=== PATIENT | female | born 1995 | race Hispanic/Latino ===

== ENCOUNTER 2019-04-06 10:49 | Inpatient (IN) | payer OTHER ==
[2019-04-06] MEDS ORDERED: ePHEDrine SULFATE 50 MG/1 ML INJ IV PRN ×2 (11:10→15:54)
[2019-04-06] MEDS ORDERED: TERBUTALINE 1 MG/1 ML INJ SUB-Q PRN (11:10)
[2019-04-06] MEDS ORDERED: AMPICILLIN/NS 2 GM/100 ML 2 GM/100 ML BAG IV ONE (11:10)
[2019-04-06] MEDS ORDERED: LIDOCAINE (2%) 20 MG/1 ML VIAL 20 ML MDV INFILTRATI ONE (11:10)
[2019-04-06] MEDS ORDERED: ONDANSETRON 4 MG/2 ML INJ IV PRN (11:10)
--- NOTE | 2019-04-06 11:14 | History and Physical Report ---
History of Present Illness Date of examination: 04/06/19 Date of admission: 04/06/19 10:49 Chief complaint: SROM @ 41 weeks, 0845 today History of present illness: EDC Confirmation: 03/30/2019 Past History : 1 Term Births: 0 Premature Births: 0 Living Children: 0 Para: 0 Mult. Births: 0 Prev : 0 Prev. attempt? 0 Aborta: 0 Elect. Ab: 0 Spont. 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 of genital herpes: no Varicella/Chicken Pox Status: Previous Disease Genetic History Congenital Heart Defect: Mom: no Dad: no Thomas Disease: Mom: no Dad: no Thalassemia Mom: no Dad: no Neural Tube Defect Mom: no Dad: no Down's Syndrome Mom: no Dad: no Brennan-Sachs Mom: no Dad: no Sickle Cell Disease/Trait Mom: no Dad: no Hemophilia Mom: no Dad: no Muscular Dystrophy Mom: no Dad: no Cystic Fibrosis Mom: no Dad: no [place] Chorea Mom: no Dad: no Mental Retardation Mom: no Dad: no Fragile X Mom: no Dad: no Other Genetic/Chromosomal Disorder Mom: no Dad: no Child w/other defect Mom: no Dad: no Enviromental Exposures Xray Exposure: no Medication, drug, or alcohol use since LMP: no Chemical/Other Exposure: no Exposure to Cat Liter: yes Hx of Parvovirus (Fifth Disease): no Occupational Exposure to Children: none Active Medications: None Past History Past Medical History: other (see HPI) Past Surgical History: other (see HPI) 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) Family/Genetic History: other (see HPI) - Obstetrical History Expected Date of Delivery: 03/30/19 Actual Gestation: 41 Week(s) 0 Day(s) : 1 Para: 0 Hx # Term Pregnancies: 0 Number of Pregnancies: 0 Spontaneous Abortions: 0 Induced : 0 Number of Living Children: 0 Medications and Allergies Allergies Allergy/AdvReac Type Severity Reaction Status Date / Time No Known Allergies Allergy Unverified 08/29/14 16:59 Home Medications Medication Instructions Recorded Confirmed Last Taken Type Ibuprofen [Motrin] 600 mg PO Q8H PRN #30 tablet 08/29/14 Unknown Rx oxyCODONE /ACETAMINOPHEN [Percocet 1 tab PO Q6HR PRN #12 tablet 08/29/14 Unknown Rx 5/325] Review of Systems All systems: negative - Vital Signs Vital signs: Vital Signs Pulse BP 115 H 137/94 04/06/19 11:11 04/06/19 11:11 Temp Pulse Resp BP Pulse Ox 115 H 137/94 04/06/19 11:11 04/06/19 11:11 - Physical Exam Breasts: Positive: normal Cardiovascular: Regular rate Lungs: Positive: Clear to auscultation, Normal air movement Abdomen: Positive: normal appearance, soft Genitourinary (Female): Positive: normal external genitalia, normal perenium Vulva: both: normal Vagina: Positive: normal moisture (SROM - light mec fluid noted) Uterus: Positive: normal size, normal contour Anus/Rectum: Positive: normal perianal skin Deep Tendon Reflex Grade: Normal +2 - Obstetrical FHR: auscultation normal, category 1 Uterine Contraction Monitor Mode: External Cervical Dilatation: 1.5 (Vertex, light mec) Cervical Effacement Percentage: 50 station: -1 Uterine Contraction Frequency (min): 2-3 Uterine Contraction Duration: 60 Uterine Contraction Pattern: Regular Uterine Tone Measurement Phase: Contraction Uterine Contraction Intensity: Mild Results All other labs normal. Assessment and Plan 23y/o @ 41+0 weeks, arrived SROM with light mec fluid. EFW 7#12oz on u/s in office 04/04. Pelvis feels adequate for size of baby. GBS +. complicated by maternal smoking and late PNC @ 21 weeks. Admission orders in EMR. - Patient Problems (1) GBS carrier Current Visit: Yes Status: Acute Plan to address problem: Ampicillin q4h until delivery (2) SROM (spontaneous rupture of membranes) Current Visit: Yes Status: Acute (3) 41 weeks gestation of Current Visit: Yes Status: Acute
[2019-04-06] MEDS ORDERED: OXYTOCIN DRIP 30 UNITS/500 ML BAG IV SCH (12:00)
[2019-04-06] MEDS: LACTATED RINGERS 1,000 ML IV SCH ×4 (12:00→22:58)
[2019-04-06 13:15] LABS: Hematocrit 38.9 % (30.3-42.9); Hemoglobin 13.1 gm/dl (10.1-14.3); Mean Corpuscular HGB Conc 34 % (30-34); Mean Corpuscular Volume 92 fl (79-97); Platelet Count 235 K/mm3 (140-440); Red Blood Count 4.21 M/mm3 (3.65-5.03)
[2019-04-06] MEDS ORDERED: fentaNYL 100 MCG/2 ML INJ ONE (13:33)
--- NOTE | 2019-04-06 14:03 | Event Note ---
Date: 04/06/19 pitocin increased from 1mU to 5mU via pump. FHT CAT 1, baseline 120, + Accels. Ctx irregular and mild in palpation. Will continue to monitor and titrate pitocin as needed d/t SROM and + GBS.
--- NOTE | 2019-04-06 14:33 | Event Note ---
Date: 04/06/19 Pt assisted to bathroom, bed linens changes. Pitocin increased from 5mU to 9mU. FHT CAT 1, baseline 120. ctx 2-4min lasting 60 second palpated mild to moderate. resting tone palpated soft. Pt denies additional needs at this time. Will continue to monitor closely.
--- NOTE | 2019-04-06 15:04 | Event Note ---
Date: 04/06/19 New bag of LR dee, IVF open for pre-epidural bolus. Pitocin increased from 9mU to 13mU. FHT [address] variability and + Accels, CAT 1. CTX 2-3minutes apart, lasting approx 60 second. Mild-Moderate intensity and soft resting tone palpated.
[2019-04-06] MEDS ORDERED: AMPICILLIN/NS 1 GM/50 ML 1 GM/50 ML BAG IV SCH (15:11)
[2019-04-06] MEDS ORDERED: fentaNYL 100 MCG/2 ML INJ IV ONE (15:13)
[2019-04-06] MEDS ORDERED: SODIUM CHLORIDE P/F VIAL 10 ML 10 ML ONE (15:40)
[2019-04-06] MEDS ORDERED: DEXMEDETOMIDINE 200 MCG/2 ML VIAL IV ONE (15:40)
[2019-04-06] MEDS ORDERED: NALOXONE 2 MG/2 ML INJ IV PRN (15:54)
--- NOTE | 2019-04-06 15:56 | Anesthesia Consultation ---
Anesthesia Consult and Med Hx Date of service: 04/06/19 - Airway Anesthetic Teeth Evaluation: Good ROM Head & Neck: Adequate Mental/Hyoid Distance: Adequate Mallampati Class: Class II Intubation Access Assessment: Probably Good - Pulmonary Exam CTA: Yes - Cardiac Exam Cardiac Exam: RRR - Pre-Operative Health Status ASA Pre-Surgery Classification: ASA3 Proposed Anesthetic Plan: Epidural - Cardiovascular System Hx Valvular Heart Disease: Yes (unknown, no cp, sob, syncope ) - Other Systems Hx Obesity: Yes
[2019-04-06] MEDS ORDERED: fentaNYL-BUPIV 2 MCG/ML-0.125% 200 MCG/100 ML BAG EPIDURAL SCH (16:00)
--- NOTE | 2019-04-06 16:24 | Progress Note ---
Assessment and Plan patient comfortable s/p epidural. IUPC placed without difficulty, blood noted in tube. IUPC working well. Will continue current management. - Patient Problems (1) GBS carrier Current Visit: Yes Status: Acute Plan to address problem: Ampicillin q4h until delivery (2) SROM (spontaneous rupture of membranes) Current Visit: Yes Status: Acute (3) 41 weeks gestation of Current Visit: Yes Status: Acute Subjective - Subjective Date of service: 04/06/19 Principal diagnosis: IUP @ 41 weeks, SROM Interval history: EDC Confirmation: 03/30/2019 Past History : 1 Term Births: 0 Premature Births: 0 Living Children: 0 Para: 0 Mult. Births: 0 Prev : 0 Prev. attempt? 0 Aborta: 0 Elect. Ab: 0 Spont. 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 of genital herpes: no Varicella/Chicken Pox Status: Previous Disease Genetic History Congenital Heart Defect: Mom: no Dad: no Thomas Disease: Mom: no Dad: no Thalassemia Mom: no Dad: no Neural Tube Defect Mom: no Dad: no Down's Syndrome Mom: no Dad: no Brennan-Sachs Mom: no Dad: no Sickle Cell Disease/Trait Mom: no Dad: no Hemophilia Mom: no Dad: no Muscular Dystrophy Mom: no Dad: no Cystic Fibrosis Mom: no Dad: no [place] Chorea Mom: no Dad: no Mental Retardation Mom: no Dad: no Fragile X Mom: no Dad: no Other Genetic/Chromosomal Disorder Mom: no Dad: no Child w/other defect Mom: no Dad: no Enviromental Exposures Xray Exposure: no Medication, drug, or alcohol use since LMP: no Chemical/Other Exposure: no Exposure to Cat Liter: yes Hx of Parvovirus (Fifth Disease): no Occupational Exposure to Children: none Active Medications: None Patient reports: no new complaints (comfortable with epidural) Objective - Vital Signs Vital Signs: Vital Signs - 12hr 04/06/19 04/06/19 04/06/19 11:11 11:14 15:44 Pulse Rate 115 H 110 H 90 Blood Pressure 137/94 125/75 O2 Sat by Pulse 100 Oximetry 04/06/19 04/06/19 04/06/19 15:46 15:49 15:50 Pulse Rate 77 97 H 94 H Blood Pressure 134/73 133/71 126/66 O2 Sat by Pulse 98 Oximetry 04/06/19 04/06/19 04/06/19 15:54 15:55 15:59 Pulse Rate 92 H 93 H 89 Blood Pressure 130/63 O2 Sat by Pulse 98 97 Oximetry 04/06/19 04/06/19 04/06/19 16:03 16:04 16:09 Pulse Rate 102 H 95 H 100 H Blood Pressure 118/58 107/53 O2 Sat by Pulse 98 98 Oximetry 04/06/19 04/06/19 04/06/19 16:14 16:16 16:17 Pulse Rate 110 H 110 H 89 Blood Pressure 100/54 108/68 109/63 O2 Sat by Pulse 98 Oximetry 04/06/19 16:19 Pulse Rate 89 Blood Pressure O2 Sat by Pulse 99 Oximetry - Exam Breasts: normal Cardiovascular: Regular rate Lungs: Clear to auscultation, Normal air movement Abdomen: Present: normal appearance, soft Vulva: both: normal Uterus: Present: normal, fundal height above umbilicus FHR: category 2 Uterine Contraction Monitor Mode: Internal Cervical Dilatation: 3.5 Cervical Effacement Percentage: 70 station: -1 Uterine Contraction Frequency (min): 2-3 Uterine Contraction Duration: 60 Uterine Contraction Pattern: Regular Uterine Tone Measurement Phase: Contraction Uterine Contraction Intensity: Moderate Extremities: normal - Labs Labs: Abnormal Labs 04/06/19 12:41 WBC 11.2 H Laboratory Results - last 24 hr 04/06/19 04/06/19 04/06/19 12:41 12:41 12:41 WBC 11.2 H RBC 4.21 Hgb 13.1 Hct 38.9 MCV 92 MCH 31 MCHC 34 RDW 14.0 Plt Count 235 Syphilis IgG Antibody Non-reactive Blood Type A POSITIVE Antibody Screen Negative
--- NOTE | 2019-04-06 18:46 | Progress Note ---
Assessment and Plan no cervical change noted since last SVE after epidural. Pit turned off when FHT had decels after epidural d/t hypertension. pitocin restarted will resume titrating for adequate labor as status allow. - Patient Problems (1) GBS carrier Current Visit: Yes Status: Acute Plan to address problem: Ampicillin q4h until delivery (2) SROM (spontaneous rupture of membranes) Current Visit: Yes Status: Acute (3) 41 weeks gestation of Current Visit: Yes Status: Acute Subjective - Subjective Date of service: 04/06/19 Principal diagnosis: IUP @ 41 weeks, SROM Interval history: EDC Confirmation: 03/30/2019 Past History : 1 Term Births: 0 Premature Births: 0 Living Children: 0 Para: 0 Mult. Births: 0 Prev : 0 Prev. attempt? 0 Aborta: 0 Elect. Ab: 0 Spont. 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 of genital herpes: no Varicella/Chicken Pox Status: Previous Disease Genetic History Congenital Heart Defect: Mom: no Dad: no Thomas Disease: Mom: no Dad: no Thalassemia Mom: no Dad: no Neural Tube Defect Mom: no Dad: no Down's Syndrome Mom: no Dad: no Brennan-Sachs Mom: no Dad: no Sickle Cell Disease/Trait Mom: no Dad: no Hemophilia Mom: no Dad: no Muscular Dystrophy Mom: no Dad: no Cystic Fibrosis Mom: no Dad: no [place] Chorea Mom: no Dad: no Mental Retardation Mom: no Dad: no Fragile X Mom: no Dad: no Other Genetic/Chromosomal Disorder Mom: no Dad: no Child w/other defect Mom: no Dad: no Enviromental Exposures Xray Exposure: no Medication, drug, or alcohol use since LMP: no Chemical/Other Exposure: no Exposure to Cat Liter: yes Hx of Parvovirus (Fifth Disease): no Occupational Exposure to Children: none Active Medications: None Patient reports: no new complaints (comfortable with epidural) Objective - Vital Signs Vital Signs: Vital Signs - 12hr 04/06/19 04/06/19 04/06/19 11:11 11:14 15:44 Pulse Rate 115 H 110 H 90 Blood Pressure 137/94 125/75 O2 Sat by Pulse 100 Oximetry 04/06/19 04/06/19 04/06/19 15:46 15:49 15:50 Pulse Rate 77 97 H 94 H Blood Pressure 134/73 133/71 126/66 O2 Sat by Pulse 98 Oximetry 04/06/19 04/06/19 04/06/19 15:54 15:55 15:59 Pulse Rate 92 H 93 H 89 Blood Pressure 130/63 O2 Sat by Pulse 98 97 Oximetry 04/06/19 04/06/19 04/06/19 16:03 16:04 16:09 Pulse Rate 102 H 95 H 100 H Blood Pressure 118/58 107/53 O2 Sat by Pulse 98 98 Oximetry 04/06/19 04/06/19 04/06/19 16:14 16:16 16:17 Pulse Rate 110 H 110 H 89 Blood Pressure 100/54 108/68 109/63 O2 Sat by Pulse 98 Oximetry 04/06/19 04/06/19 04/06/19 16:19 16:24 16:29 Pulse Rate 89 88 100 H Blood Pressure 102/56 O2 Sat by Pulse 99 99 99 Oximetry 04/06/19 04/06/19 04/06/19 16:34 16:39 16:44 Pulse Rate 88 84 72 Blood Pressure O2 Sat by Pulse 99 100 100 Oximetry 04/06/19 04/06/19 04/06/19 16:46 16:48 16:49 Pulse Rate 75 74 78 Blood Pressure 91/47 82/47 O2 Sat by Pulse 100 Oximetry 04/06/19 04/06/19 04/06/19 16:54 16:55 16:57 Pulse Rate 78 81 75 Blood Pressure 87/49 91/52 O2 Sat by Pulse 100 Oximetry 04/06/19 04/06/19 04/06/19 16:59 17:04 17:09 Pulse Rate 78 80 74 Blood Pressure O2 Sat by Pulse 100 100 100 Oximetry 04/06/19 04/06/19 04/06/19 17:11 17:14 17:15 Pulse Rate 69 72 68 Blood Pressure 88/46 88/52 86/48 O2 Sat by Pulse 100 Oximetry 04/06/19 04/06/19 04/06/19 17:19 17:24 17:29 Pulse Rate 79 77 69 Blood Pressure O2 Sat by Pulse 100 100 100 Oximetry 04/06/19 04/06/19 04/06/19 17:30 17:32 17:34 Pulse Rate 66 82 82 Blood Pressure 98/54 100/54 O2 Sat by Pulse 100 Oximetry 04/06/19 04/06/19 04/06/19 17:39 17:41 17:44 Pulse Rate 71 78 73 Blood Pressure 99/51 O2 Sat by Pulse 100 100 Oximetry 04/06/19 04/06/19 04/06/19 17:46 17:49 17:52 Pulse Rate 78 79 83 Blood Pressure 95/54 92/51 O2 Sat by Pulse 100 Oximetry 04/06/19 04/06/19 04/06/19 17:54 17:59 18:00 Pulse Rate 70 68 65 Blood Pressure 100/50 O2 Sat by Pulse 100 100 Oximetry 04/06/19 04/06/19 04/06/19 18:04 18:09 18:14 Pulse Rate 65 74 67 Blood Pressure O2 Sat by Pulse 100 100 100 Oximetry 04/06/19 04/06/19 04/06/19 18:15 18:19 18:24 Pulse Rate 66 65 79 Blood Pressure 107/53 O2 Sat by Pulse 100 100 Oximetry 04/06/19 04/06/19 04/06/19 18:29 18:30 18:34 Pulse Rate 82 69 79 Blood Pressure 105/53 O2 Sat by Pulse 99 100 Oximetry 04/06/19 18:39 Pulse Rate 80 Blood Pressure O2 Sat by Pulse 99 Oximetry - Exam Breasts: normal Cardiovascular: Regular rate Lungs: Clear to auscultation Abdomen: Present: normal appearance, soft Vulva: both: normal Uterus: Present: normal, fundal height above umbilicus FHR: auscultation normal, category 1 Uterine Contraction Monitor Mode: Internal Cervical Dilatation: 3.5 Cervical Effacement Percentage: 70 station: -1 Uterine Contraction Frequency (min): 2-4 Uterine Contraction Duration: 50 Uterine Contraction Pattern: Regular Uterine Tone Measurement Phase: Contraction Uterine Contraction Intensity: Moderate Extremities: normal Deep Tendon Reflex Grade: Normal +2 - Labs Labs: Abnormal Labs 04/06/19 12:41 WBC 11.2 H Laboratory Results - last 24 hr 04/06/19 04/06/19 04/06/19 12:41 12:41 12:41 WBC 11.2 H RBC 4.21 Hgb 13.1 Hct 38.9 MCV 92 MCH 31 MCHC 34 RDW 14.0 Plt Count 235 Syphilis IgG Antibody Non-reactive Blood Type A POSITIVE Antibody Screen Negative
--- NOTE | 2019-04-06 21:10 | Progress Note ---
Assessment and Plan patient c/o feeling rectal pressure with ctx, SVE 5/80/-1. no caput noted. Late decels resolved with position change, o2 and decrease in pitocin from 10mU to 5mU. Dr. Diggs updated and aware of patient status. - Patient Problems (1) GBS carrier Current Visit: Yes Status: Acute Plan to address problem: Ampicillin q4h until delivery (2) SROM (spontaneous rupture of membranes) Current Visit: Yes Status: Acute (3) 41 weeks gestation of Current Visit: Yes Status: Acute Subjective - Subjective Date of service: 04/06/19 Principal diagnosis: IUP @ 41 weeks, SROM Interval history: EDC Confirmation: 03/30/2019 Past History : 1 Term Births: 0 Premature Births: 0 Living Children: 0 Para: 0 Mult. Births: 0 Prev : 0 Prev. attempt? 0 Aborta: 0 Elect. Ab: 0 Spont. 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 of genital herpes: no Varicella/Chicken Pox Status: Previous Disease Genetic History Congenital Heart Defect: Mom: no Dad: no Thomas Disease: Mom: no Dad: no Thalassemia Mom: no Dad: no Neural Tube Defect Mom: no Dad: no Down's Syndrome Mom: no Dad: no Brennan-Sachs Mom: no Dad: no Sickle Cell Disease/Trait Mom: no Dad: no Hemophilia Mom: no Dad: no Muscular Dystrophy Mom: no Dad: no Cystic Fibrosis Mom: no Dad: no [place] Chorea Mom: no Dad: no Mental Retardation Mom: no Dad: no Fragile X Mom: no Dad: no Other Genetic/Chromosomal Disorder Mom: no Dad: no Child w/other defect Mom: no Dad: no Enviromental Exposures Xray Exposure: no Medication, drug, or alcohol use since LMP: no Chemical/Other Exposure: no Exposure to Cat Liter: yes Hx of Parvovirus (Fifth Disease): no Occupational Exposure to Children: none Active Medications: None Patient reports: new complaints (rectal pressure with ctx) Objective - Vital Signs Vital Signs: Vital Signs - 12hr 04/06/19 04/06/19 04/06/19 11:11 11:14 11:15 Temperature 98.1 F Pulse Rate 115 H 110 H Respiratory Rate Blood Pressure 137/94 125/75 O2 Sat by Pulse Oximetry 04/06/19 04/06/19 04/06/19 15:44 15:46 15:49 Temperature Pulse Rate 90 77 97 H Respiratory Rate Blood Pressure 134/73 133/71 O2 Sat by Pulse 100 98 Oximetry 04/06/19 04/06/19 04/06/19 15:50 15:54 15:55 Temperature Pulse Rate 94 H 92 H 93 H Respiratory Rate Blood Pressure 126/66 130/63 O2 Sat by Pulse 98 Oximetry 04/06/19 04/06/19 04/06/19 15:59 16:03 16:04 Temperature Pulse Rate 89 102 H 95 H Respiratory Rate Blood Pressure 118/58 O2 Sat by Pulse 97 98 Oximetry 04/06/19 04/06/19 04/06/19 16:09 16:14 16:16 Temperature Pulse Rate 100 H 110 H 110 H Respiratory Rate Blood Pressure 107/53 100/54 108/68 O2 Sat by Pulse 98 98 Oximetry 04/06/19 04/06/19 04/06/19 16:17 16:19 16:24 Temperature Pulse Rate 89 89 88 Respiratory Rate Blood Pressure 109/63 O2 Sat by Pulse 99 99 Oximetry 04/06/19 04/06/19 04/06/19 16:29 16:34 16:39 Temperature Pulse Rate 100 H 88 84 Respiratory Rate Blood Pressure 102/56 O2 Sat by Pulse 99 99 100 Oximetry 04/06/19 04/06/19 04/06/19 16:44 16:46 16:48 Temperature Pulse Rate 72 75 74 Respiratory Rate Blood Pressure 91/47 82/47 O2 Sat by Pulse 100 Oximetry 04/06/19 04/06/19 04/06/19 16:49 16:54 16:55 Temperature Pulse Rate 78 78 81 Respiratory Rate Blood Pressure 87/49 O2 Sat by Pulse 100 100 Oximetry 04/06/19 04/06/19 04/06/19 16:57 16:59 17:04 Temperature Pulse Rate 75 78 80 Respiratory Rate Blood Pressure 91/52 O2 Sat by Pulse 100 100 Oximetry 04/06/19 04/06/19 04/06/19 17:09 17:11 17:14 Temperature Pulse Rate 74 69 72 Respiratory Rate Blood Pressure 88/46 88/52 O2 Sat by Pulse 100 100 Oximetry 04/06/19 04/06/19 04/06/19 17:15 17:19 17:24 Temperature Pulse Rate 68 79 77 Respiratory Rate Blood Pressure 86/48 O2 Sat by Pulse 100 100 Oximetry 04/06/19 04/06/19 04/06/19 17:29 17:30 17:32 Temperature Pulse Rate 69 66 82 Respiratory Rate Blood Pressure 98/54 100/54 O2 Sat by Pulse 100 Oximetry 04/06/19 04/06/19 04/06/19 17:34 17:39 17:41 Temperature Pulse Rate 82 71 78 Respiratory Rate Blood Pressure 99/51 O2 Sat by Pulse 100 100 Oximetry 04/06/19 04/06/19 04/06/19 17:44 17:46 17:49 Temperature Pulse Rate 73 78 79 Respiratory Rate Blood Pressure 95/54 O2 Sat by Pulse 100 100 Oximetry 04/06/19 04/06/19 04/06/19 17:52 17:54 17:59 Temperature Pulse Rate 83 70 68 Respiratory Rate Blood Pressure 92/51 O2 Sat by Pulse 100 100 Oximetry 04/06/19 04/06/19 04/06/19 18:00 18:04 18:09 Temperature Pulse Rate 65 65 74 Respiratory Rate Blood Pressure 100/50 O2 Sat by Pulse 100 100 Oximetry 04/06/19 04/06/19 04/06/19 18:14 18:15 18:19 Temperature Pulse Rate 67 66 65 Respiratory Rate Blood Pressure 107/53 O2 Sat by Pulse 100 100 Oximetry 04/06/19 04/06/19 04/06/19 18:24 18:29 18:30 Temperature Pulse Rate 79 82 69 Respiratory Rate Blood Pressure 105/53 O2 Sat by Pulse 100 99 Oximetry 04/06/19 04/06/19 04/06/19 18:34 18:39 18:44 Temperature Pulse Rate 79 80 73 Respiratory Rate Blood Pressure 107/55 O2 Sat by Pulse 100 99 100 Oximetry 04/06/19 04/06/19 04/06/19 18:49 18:50 18:54 Temperature 98.4 F Pulse Rate 71 71 76 Respiratory 18 Rate Blood Pressure O2 Sat by Pulse 100 100 100 Oximetry 04/06/19 04/06/19 04/06/19 18:59 19:00 19:04 Temperature Pulse Rate 71 69 69 Respiratory Rate Blood Pressure 108/62 O2 Sat by Pulse 100 100 Oximetry 04/06/19 04/06/19 04/06/19 19:09 19:14 19:15 Temperature Pulse Rate 80 69 69 Respiratory Rate Blood Pressure 103/57 O2 Sat by Pulse 100 99 Oximetry 04/06/19 04/06/19 04/06/19 19:19 19:24 19:29 Temperature Pulse Rate 83 89 82 Respiratory Rate Blood Pressure O2 Sat by Pulse 98 96 97 Oximetry 04/06/19 04/06/19 04/06/19 19:31 19:34 19:39 Temperature Pulse Rate 80 76 70 Respiratory Rate Blood Pressure 112/67 O2 Sat by Pulse 95 96 Oximetry 04/06/19 04/06/19 04/06/19 19:44 19:45 19:49 Temperature Pulse Rate 66 67 72 Respiratory Rate Blood Pressure 103/52 O2 Sat by Pulse 96 97 Oximetry 04/06/19 04/06/19 04/06/19 19:54 19:59 20:01 Temperature Pulse Rate 86 82 86 Respiratory Rate Blood Pressure 121/61 O2 Sat by Pulse 97 99 Oximetry 04/06/19 04/06/19 04/06/19 20:04 20:09 20:14 Temperature Pulse Rate 84 89 93 H Respiratory Rate Blood Pressure O2 Sat by Pulse 98 97 98 Oximetry 04/06/19 04/06/19 04/06/19 20:15 20:19 20:24 Temperature Pulse Rate 97 H 84 83 Respiratory Rate Blood Pressure 120/83 O2 Sat by Pulse 98 97 Oximetry 04/06/19 04/06/19 04/06/19 20:29 20:30 20:34 Temperature Pulse Rate 79 80 79 Respiratory Rate Blood Pressure 111/65 O2 Sat by Pulse 97 98 Oximetry 04/06/19 04/06/19 04/06/19 20:39 20:44 20:46 Temperature Pulse Rate 79 82 85 Respiratory Rate Blood Pressure 113/59 O2 Sat by Pulse 98 97 Oximetry 04/06/19 04/06/19 04/06/19 20:49 20:54 20:59 Temperature Pulse Rate 87 93 H 81 Respiratory Rate Blood Pressure O2 Sat by Pulse 97 99 97 Oximetry 04/06/19 04/06/19 21:00 21:04 Temperature Pulse Rate 81 77 Respiratory Rate Blood Pressure 114/59 O2 Sat by Pulse 99 Oximetry - Exam Cardiovascular: Regular rate Lungs: Clear to auscultation, Normal air movement Abdomen: Present: normal appearance, soft Vulva: both: normal Uterus: Present: normal, fundal height above umbilicus FHR: category 2 Uterine Contraction Monitor Mode: External Cervical Dilatation: 5 Cervical Effacement Percentage: 80 station: -1 Uterine Contraction Frequency (min): 2 Uterine Contraction Duration: 60 Uterine Contraction Pattern: Regular Uterine Tone Measurement Phase: Contraction Uterine Contraction Intensity: Moderate Extremities: normal - Labs Labs: Abnormal Labs 04/06/19 12:41 WBC 11.2 H Laboratory Results - last 24 hr 04/06/19 04/06/19 04/06/19 12:41 12:41 12:41 WBC 11.2 H RBC 4.21 Hgb 13.1 Hct 38.9 MCV 92 MCH 31 MCHC 34 RDW 14.0 Plt Count 235 Syphilis IgG Antibody Non-reactive Blood Type A POSITIVE Antibody Screen Negative
[2019-04-06] MEDS ORDERED: SODIUM CHLORIDE 0.9% 1000 ML 1,000 ML VG SCH (21:15)
[2019-04-06] MEDS: MINERAL OIL 30 ML ORAL LIQD PO PRN ×2 (22:57→23:32)
[2019-04-06] MEDS: OXYTOCIN 20 UNIT/1000ML DRIP 20 UNITS/1,000 ML BAG IV SCH (23:33)
[2019-04-06] MEDS ORDERED: miSOPROStol 200 MCG TAB VG ONE (23:36)
[2019-04-06] MEDS ORDERED: miSOPROStol 200 MCG TAB ONE (23:40)
--- NOTE | 2019-04-06 23:58 | Procedure Note ---
OB Delivery Note - Delivery Date of Delivery: 04/06/19 ( female ) Air Conditioning Insulation Installer: BLOSSOM HOOVER Estimated blood loss: 500cc - Vaginal Delivery presentation: vertex Delivery position: OA Intrapartum events: PROM->1hr before delivery Delivery induction: oxytocin Delivery augmentation: pitocin Delivery monitor: internal FHT, internal uterine Route of delivery: Delivery placenta: spontaneous Delivery cord: 3 umbilical vessels Episiotomy: none Delivery laceration: 2nd degree, vaginal side wall Delivery repair: vicryl Anesthesia: epidural Delivery comments: Female del SHIRA over intact perineum. Infant vigours and crying, placed skin to skin on mother's abdomen. 3 vessel cord clamped and cut after cessation of pulsation. Placenta del intact and complete. 2nd degree laceration and left vaginal sidewall laceration repaired in the usual fashion. Uterine atony noted with steady trickly of small vaginal bleeding - red rubber cath used and 800mcg cyotec placed rectally. Atony improved and bleeding lessened to normal amount. baby wt 7#4.5oz, apgars 8/9, EBL 500. Mother and baby remain LDR stable. - A at 1 minute: 8 at 5 minutes: 9 Gender: Female (7#4.5oz, Rafael)
[2019-04-07] MEDS: OXYTOCIN 20 UNIT/1000ML DRIP 20 UNITS/1,000 ML BAG IV SCH ×2 (00:48→00:49)
[2019-04-07] MEDS ORDERED: diphenhydrAMINE 25 MG CAP PO PRN (02:27)
[2019-04-07] MEDS ORDERED: MAGNESIUM HYDROXIDE (MOM) ORAL LIQD UDC PO PRN (02:27)
[2019-04-07] MEDS ORDERED: PROMETHAZINE 25 MG TAB PO PRN (02:27)
[2019-04-07] MEDS ORDERED: BENZOCAINE/MENTHOL 20/0.5% TOP SPRAY 56 GM TP PRN (02:27)
[2019-04-07] MEDS ORDERED: OXYTOCIN 20 UNIT/1000ML DRIP 20 UNITS/1,000 ML BAG IV SCH (02:27)
[2019-04-07] MEDS ORDERED: ACETAMINOPHEN 325 MG TAB PO PRN (02:27)
[2019-04-07] MEDS ORDERED: LANOLIN/ZINC/DIMETHICONE (LANSINOH) 7 GM TP PRN (02:27)
[2019-04-07] MEDS ORDERED: WITCH HAZEL/ GLYCERIN PAD TP PRN (02:27)
[2019-04-07] MEDS: IBUPROFEN 600 MG TAB PO SCH ×4 (02:49→19:19)
[2019-04-07] MEDS ORDERED: TETANUS,DIPH,PERTUSS(ACELL) VACCINE 0.5 ML SYRINGE IM ONE (06:00)
[2019-04-07] MEDS: DOCUSATE SODIUM 100 MG CAP PO SCH ×2 (10:01→21:32)
[2019-04-07] MEDS: PRENATAL VIT27-FE FUMARATE-FOLIC ACID VIT TAB PO SCH (10:01)
[2019-04-07] MEDS: FERROUS SULFATE 325 MG TAB PO SCH ×2 (10:01→21:32)
--- NOTE | 2019-04-07 13:17 | Progress Note ---
Assessment and Plan patient doing well, no complaints. VSSAF, lochia scant. several elevated b/p's noted, pt denies GONSALES, visual changes or epigastric pain. b/p's not in severe range. Will check pre-e labs with H&H. RN aware they have been ordered. Will continue to monitor. - Patient Problems (1) (normal spontaneous vaginal delivery) Current Visit: Yes Status: Acute (2) Elevated blood pressure reading with diagnosis of hypertension Current Visit: Yes Status: Acute Plan to address problem: pre-e labs ordered Subjective - Subjective Date of service: 04/07/19 Principal diagnosis: postop day #1 s/p Interval history: EDC Confirmation: 03/30/2019 Past History : 1 Term Births: 0 Premature Births: 0 Living Children: 0 Para: 0 Mult. Births: 0 Prev : 0 Prev. attempt? 0 Aborta: 0 Elect. Ab: 0 Spont. 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 of genital herpes: no Varicella/Chicken Pox Status: Previous Disease Genetic History Congenital Heart Defect: Mom: no Dad: no Thomas Disease: Mom: no Dad: no Thalassemia Mom: no Dad: no Neural Tube Defect Mom: no Dad: no Down's Syndrome Mom: no Dad: no Brennan-Sachs Mom: no Dad: no Sickle Cell Disease/Trait Mom: no Dad: no Hemophilia Mom: no Dad: no Muscular Dystrophy Mom: no Dad: no Cystic Fibrosis Mom: no Dad: no [place] Chorea Mom: no Dad: no Mental Retardation Mom: no Dad: no Fragile X Mom: no Dad: no Other Genetic/Chromosomal Disorder Mom: no Dad: no Child w/other defect Mom: no Dad: no Enviromental Exposures Xray Exposure: no Medication, drug, or alcohol use since LMP: no Chemical/Other Exposure: no Exposure to Cat Liter: yes Hx of Parvovirus (Fifth Disease): no Occupational Exposure to Children: none Active Medications: None Patient reports: appetite normal, voiding normally, pain well controlled, ambulating normally, no dizzy ambulation, no nauseated : doing well, bottle feeding Objective - Vital Signs Latest vital signs: Vital Signs Temp Pulse Resp BP BP Pulse Ox 04/07/19 12:32 98.1 F 89 20 144/87 97 04/07/19 10:01 20 04/07/19 07:45 98.5 F 98 H 16 127/74 96 04/07/19 04:40 98.5 F 105 H 20 121/67 96 04/07/19 01:50 98.9 F 90 21 138/91 98 04/07/19 01:14 93 H 133/81 04/07/19 01:00 106 H 134/77 04/07/19 00:30 190 H 147/83 04/07/19 00:15 100 H 133/98 04/06/19 23:59 96 H 128/63 04/06/19 23:46 93 H 156/76 04/06/19 23:44 99 H 151/74 04/06/19 23:35 84 70 L 04/06/19 23:29 100 H 160/72 04/06/19 23:15 126 H 157/83 04/06/19 22:49 104 H 98 04/06/19 22:44 100 H 99 04/06/19 22:39 120 H 100 04/06/19 22:34 100 H 100 04/06/19 22:29 128 H 99 04/06/19 22:24 105 H 100 04/06/19 22:19 111 H 100 04/06/19 22:15 99 H 144/96 04/06/19 22:14 116 H 100 04/06/19 22:09 95 H 99 04/06/19 22:04 99 H 100 04/06/19 22:01 103 H 160/72 04/06/19 21:59 110 H 100 04/06/19 21:54 90 99 04/06/19 21:49 96 H 100 04/06/19 21:46 93 H 113/58 04/06/19 21:44 104 H 99 04/06/19 21:39 83 99 04/06/19 21:34 88 99 04/06/19 21:30 96 H 137/79 04/06/19 21:29 92 H 99 04/06/19 21:24 94 H 99 04/06/19 21:19 82 100 1419 21:14 71 113/57 99 19 21:09 74 100 04/06/19 21:04 77 99 19 21:00 81 114/59 19 20:59 81 97 19 20:54 93 H 99 04/06/19 20:49 87 97 1419 20:46 85 113/59 19 20:44 82 97 04/06/19 20:39 79 98 04/06/19 20:34 79 98 04/06/19 20:30 80 111/65 04/06/19 20:29 79 97 04/06/19 20:24 83 97 04/06/19 20:19 84 98 04/06/19 20:15 97 H 120/83 04/06/19 20:14 93 H 98 04/06/19 20:09 89 97 04/06/19 20:04 84 98 04/06/19 20:01 86 121/61 04/06/19 19:59 82 99 04/06/19 19:54 86 97 04/06/19 19:49 72 97 04/06/19 19:45 67 103/52 04/06/19 19:44 66 96 04/06/19 19:39 70 96 19 19:34 76 95 19 19:31 80 112/67 04/06/19 19:29 82 97 1419 19:24 89 96 19 19:19 83 98 1419 19:15 69 103/57 14/19 19:14 69 99 14/19 19:09 80 100 14/19 19:04 69 100 14/19 19:00 69 108/62 14/19 18:59 71 100 14/19 18:54 76 100 14/19 18:50 98.4 F 71 18 100 14/19 18:49 71 100 14/19 18:44 73 107/55 100 14/19 18:39 80 99 14/19 18:34 79 100 14/19 18:30 69 105/53 14/19 18:29 82 99 14/ 18:24 79 100 14/ 18:19 65 100 14/ 18:15 66 107/53 14/ 18:14 67 100 14/ 18:09 74 100 14/19 18:04 65 100 14/ 18:00 65 100/50 14/19 17:59 68 100 14/19 17:54 70 100 14/19 17:52 83 92/51 14/19 17:49 79 100 14/19 17:46 78 95/54 14/19 17:44 73 100 14 17:41 78 99/51 14 17:39 71 100 14 17:34 82 100 14 17:32 82 100/54 14 17:30 66 98/54 14/ 17:29 69 100 14 17:24 77 100 04/06/19 17:19 79 100 04/06/19 17:15 68 86/48 04/06/19 17:14 72 88/52 100 04/06/19 17:11 69 88/46 04/06/19 17:09 74 100 04/06/19 17:04 80 100 04/06/19 16:59 78 100 04/06/19 16:57 75 91/52 04/06/19 16:55 81 87/49 04/06/19 16:54 78 100 04/06/19 16:49 78 100 04/06/19 16:48 74 82/47 04/06/19 16:46 75 91/47 04/06/19 16:44 72 100 04/06/19 16:39 84 100 04/06/19 16:34 88 99 14 16:29 100 H 102/56 99 04/06/19 16:24 88 99 04/06/19 16:19 89 99 04/06/19 16:17 89 109/63 04/06/19 16:16 110 H 108/68 14 16:14 110 H 100/54 98 14 16:09 100 H 107/53 98 04/06/19 16:04 95 H 98 04/06/19 16:03 102 H 118/58 04/06/19 15:59 89 97 04/06/19 15:55 93 H 130/63 04/06/19 15:54 92 H 98 04/06/19 15:50 94 H 126/66 04/06/19 15:49 97 H 133/71 98 04/06/19 15:46 77 134/73 04/06/19 15:44 90 100 Intake and Output 04/06/19 04/07/19 04/07/19 23:59 07:59 15:59 Intake Total 1157.017 638.333 360 Output Total 800 Balance 1157.017 -161.667 360 Intake: IV 1157.017 158.333 Lactated Ringers 1,000 ml 1150.000 @ 125 mls/hr IV DIRECT WAN Rx#:[id number] PITOCin/NS 20 UNIT/1000ML 158.333 DRIP 20 units In 1,000 ml @ 125 mls/hr IV DIRECT WAN Rx#:[id number] PITOCin/NS 30 UNIT/500ML 7.017 30 units In 500 ml @ 4 mls/hr IV TITR WAN Rx#: [id number] Oral 480 360 Output: Urine 800 Void 800 Other: Total, Intake Amount 480 360 Total, Output Amount 800 # Voids Void 1 1 Weight 215 kg Estimated Blood Loss 500 - Exam Breasts: Present: normal Cardiovascular: Present: Regular rate Lungs: Present: Clear to auscultation, Normal air movement Abdomen: Present: normal appearance, soft Vulva: both: normal Uterus: Present: normal, firm, fundal height below umbilicus Extremities: Present: normal Deep Tendon Reflex Grade: Normal +2 - Labs Labs: Abnormal lab results 04/06/19 Range/Units 12:41 WBC 11.2 H (4.5-11.0) K/mm3
[2019-04-07 14:22] LABS: Hematocrit 28.7 % (30.3-42.9); Mean Corpuscular HGB Conc 35 % (30-34); Mean Corpuscular Volume 92 fl (79-97); Platelet Count 205 K/mm3 (140-440); Red Blood Count 3.11 M/mm3 (3.65-5.03); Red Cell Distribution Width 13.8 % (13.2-15.2)
[2019-04-07 14:48] LABS: Alanine Aminotransferase 6 units/L (7-56)
[2019-04-08] MEDS: IBUPROFEN 600 MG TAB PO SCH ×2 (02:19→12:44)
--- NOTE | 2019-04-08 07:02 | Discharge Summary ---
Providers - Providers Date of Admission: 04/06/19 10:49 Date of discharge: 04/08/19 (Pt desires to go home) Attending physician: DAPHNE UGARTE Primary care physician: DAPHNE UGARTE Hospitalization Reason for admission: rupture of membranes, IUP at term Delivery: Episiotomy: none Laceration: vaginal side wall, 2nd degree Incision: normal, intact Other procedures: none complications: uterine atony, other (Some elevated BPs, Pre E labs WNL, BPs normal and stable in AM before D/C. ) Discharge diagnosis: IUP at term delivered [place] baby: female Hospital course: S: Pt is 23 y.o. doing well. States passing flatus, with minimal bleeding. Still experiencing some cramping. Taking pain medication as ordered. Would like Depo before d/c home. O: VSS, Minimal bleeding. Perineum lac repair intact with no edema noted. H/H 02/18.7. FF@U. A: 23 y.o. @ 41wks with , uterine yanet noted after delivered, controlled with cytotec. Some elevated BP's noted, Pre E labs WNL. No elevated BP's noted at d/c. Minimal bleeding today. Desires to go home today and pt in good stable condition. P: Discharge home today with instructions. Will order depo to be given before discharge. Condition at discharge: Good Disposition: DC-01 TO HOME OR SELFCARE Plan - Provider Discharge Summary Activity: routine, no sex for 6 weeks, no heavy lifting 4 weeks, no strenuous exercise Diet: routine Instructions: routine Additional instructions: [] Smoking cessation referral if applicable(refer to patient education folder for contact #) [] Refer to [facility] Booklet Call your doctor immediately for: * Fever > 100.5 * Heavy vaginal bleeding ( >1 pad per hour) * Severe persistent headache * Shortness of breath * Reddened, hot, painful area to leg or breast * Drainage or odor from incision. * Keep incision clean and dry at all times and follow doctor's instructions regarding bathing/showering - Follow up plan Follow up: DAPHNE UGARTE MD [Primary Care Provider] - 05/13/19 (Congratulations! Please schedule an appointment in 4 weeks for your visit. Please take medication as prescribed. If any questions or concerns before your visit, please call office. )
[2019-04-08] MEDS ORDERED: medroxyPROGESTERone ACETATE 150 MG/ML SYRINGE IM ONE ×2 (07:17→13:04)
[2019-04-08] MEDS: DOCUSATE SODIUM 100 MG CAP PO SCH (12:44)
[2019-04-08] MEDS: FERROUS SULFATE 325 MG TAB PO SCH (12:44)
[2019-04-08] MEDS: PRENATAL VIT27-FE FUMARATE-FOLIC ACID VIT TAB PO SCH (12:44)
[2019-04-08 16:22] VITALS: BP 119/73
== END 2019-04-08 16:30 | disposition home or self-care (01) | DRG 775 ==
LOC: LD 10:49 → OB 04-07 02:13
PROVIDERS: ADMIT Obstetrics & Gynecology; ATTEND Obstetrics & Gynecology
PROC: 10E0XZZ Delivery of Products of Conception, External Approach (ICD-10-PCS; principal; 2019-04-06)
PROC: 0KQM0ZZ Repair Perineum Muscle, Open Approach (ICD-10-PCS; 2019-04-06)
PROC: 3E033VJ Introduction of Other Hormone into Peripheral Vein, Percutaneous Approach (ICD-10-PCS; 2019-04-06)
PROC: 3E0R3BZ Introduction of Anesthetic Agent into Spinal Canal, Percutaneous Approach (ICD-10-PCS; 2019-04-06)
PROC: 00HU33Z Insertion of Infusion Device into Spinal Canal, Percutaneous Approach (ICD-10-PCS; 2019-04-06)
PROC: 3E0234Z Introduction of Serum, Toxoid and Vaccine into Muscle, Percutaneous Approach (ICD-10-PCS; 2019-04-07)
DX: O42.92 Full-term premature rupture of membranes, unspecified as to length of time between rupture and onset of labor (principal); O16.4 Unspecified maternal hypertension, complicating childbirth; O99.824 Streptococcus B carrier state complicating childbirth; O99.214 Obesity complicating childbirth; O70.1 Second degree perineal laceration during delivery; O62.2 Other uterine inertia; Z83.3 Family history of diabetes mellitus; Z37.0 Single live birth; Z3A.41 41 weeks gestation of pregnancy; Z80.6 Family history of leukemia; Z23 Encounter for immunization
CPT/HCPCS: 36415; 82565; 83615; 84450; 84460; 84550; 85014; 85018; 85027; 86592; 86850; 86900; 86901; 90715; G0378; J0290; J1050; J2590; J3010; J3490; J7120